=== PATIENT | male | born 1960 | race Hispanic/Latino ===

== ENCOUNTER 2023-01-12 09:26 | Outpatient (CLI) | payer BC | END 2023-01-12 09:27 | disposition home or self-care (01) | LOC: SCSRAD 09:26 | PROVIDERS: ATTEND Family Medicine | DX: M25.561 Pain in right knee (principal); M25.562 Pain in left knee; M54.42 Lumbago with sciatica, left side; M47.816 Spondylosis without myelopathy or radiculopathy, lumbar region | CPT/HCPCS: 72100 ==

== ENCOUNTER 2023-09-27 10:02 | Outpatient (CLI) | payer BC | END 2023-09-27 10:03 | disposition home or self-care (01) | LOC: BICRAD 10:02 | PROVIDERS: ATTEND Family Medicine | DX: Z23 Encounter for immunization (principal); R07.81 Pleurodynia | CPT/HCPCS: 71046; 71110 ==